=== PATIENT | male | born 2000 | race African-American/Black ===

== ENCOUNTER 2019-05-25 15:59 | Emergency (ER) | payer OTHER ==
[~2019-05-25] VITALS: Ht 170.2 cm; Wt 73.3 kg
[2019-05-25 16:00] VITALS: BP 123/70
[2019-05-25] MEDS ORDERED: PROV108A INH (16:24)
[2019-05-25] MEDS ORDERED: PRED20TA PO (16:24)
== END 2019-05-25 16:30 | disposition home or self-care (01) ==
LOC: M ED 15:59
DX: J06.9 Acute upper respiratory infection, unspecified (principal)

== ENCOUNTER 2019-11-18 07:09 | Emergency (ER) | payer OTHER ==
[~2019-11-18] VITALS: Ht 170.2 cm; Wt 77.8 kg
[~2019-11-18 07:09] MED LIST: PRED20TA PO; PROV108A INH
[2019-11-18 07:43] LABS: HEMATOCRIT 42.5 % (42.0-52.0); HEMOGLOBIN 13.8 g/dl (13.5-17.5); MEAN CORPUSCULAR HEMOGLOBIN 28.4 pg (27.0-33.0); MEAN CORPUSCULAR HGB CONC 32.5 g/dl (32.0-36.5); MEAN CORPUSCULAR VOLUME 87.4 fl (80.0-96.0); PLATELET COUNT, AUTOMATED 210 10^3/uL (150-450); RED BLOOD COUNT 4.86 10^6/uL (4.30-6.10); WHITE BLOOD COUNT 5.1 10^3/uL (4.0-10.0)
[2019-11-18 08:02] LABS: AMPHETAMINES LEVEL URINE NEGATIVE (NEGATIVE); BARBITURATES URINE NEGATIVE (NEGATIVE); BENZODIAZEPINES URINE NEGATIVE (NEGATIVE); CANNABINOIDS URINE NEGATIVE (NEGATIVE); COCAINE METABOLITE URINE NEGATIVE (NEGATIVE); METHADONE URINE NEGATIVE (NEGATIVE); OPIATES URINE NEGATIVE (NEGATIVE); PHENCYCLIDINE URINE NEGATIVE (NEGATIVE)
[2019-11-18 08:11] LABS: ACETAMINOPHEN LEVEL < 2.0 UG/ML (10.0-30.0); ALBUMIN 3.7 GM/DL (3.2-5.2); ALT/SGPT 26 U/L (12-78); BILIRUBIN,DIRECT < 0.1 MG/DL (0.0-0.2); BILIRUBIN,TOTAL 0.2 MG/DL (0.2-1.0); BLOOD UREA NITROGEN 9 MG/DL (7-18); CALCIUM LEVEL 8.9 MG/DL (8.5-10.1); CARBON DIOXIDE LEVEL 28 MEQ/L (21-32); CHLORIDE LEVEL 109 MEQ/L (98-107); CREATININE FOR GFR 1.27 MG/DL (0.70-1.30); ETHYL ALCOHOL (ETHANOL) < 0.003 % (0.000-0.010); GLUCOSE, FASTING 100 MG/DL (70-100); POTASSIUM SERUM 4.2 MEQ/L (3.5-5.1); SALICYLATE LEVEL < 1.7 MG/DL (5.0-30.0); SODIUM LEVEL 143 MEQ/L (136-145); THYROID STIMULATING HORMONE 0.431 uIU/ML (0.463-3.98); TOTAL PROTEIN 6.4 GM/DL (6.4-8.2)
--- NOTE | 2019-11-18 10:47 | ED PDOC ---
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 The patient reports that he had "attempted suicide" by falling down some stairs last evening in the [facility], however he presents with no signs or symptoms of any falls or any injuries. The patient gave multiple different accounts to different providers about his symptoms, specifically stating that he will say and do whatever "whatever it takes to be away from her". The patient specifically stated that his presentation was in order to avoid field exercises. He was unable to describe any specific symptoms and generally appeared to focus on admission only, he had reported some auditory hallucinations I want to myself, but there were highly atypical occurring of his left ear that he was not able to describe in any detail other than "voices you know" Review Of Systems Depression: Vague symptoms. Anxiety: Vague situational worries. Mili: The patient denies any episodes of euphoria/dysphoria associated with decreased need for sleep, hedonism, talkatively or impulsivity lasting longer than 5 days. Psychotic: The patient denies any experiences of auditory or visual hallucinations. They deny any episodes of paranoia or delusional thinking in the past Trauma: The patient denies any traumatic events associated with nightmares or intrusive thoughts. Borderline: Not screened due to age. Past Psychiatric History Reports that he has had a history of ADHD in the past, currently sees [facility] for therapy. Denies any overt suicide attempts, reports that he had done some gestures when he was younger. But no hospitalizations. Family Psychiatric History The patient denies/is unaware any history of mental health history including addictions and suicide. 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 He currently lives in the [facility], has been in the for 1 year. Reports no major legal issues and denies any substance use, reports some tobacco use at times but denies alcohol, cannabis or illicits. The patient is unable to describe any specific symptoms at this time. Medical History Patient has no significant past medical history. Allergies See below Mental Status Examination General: Well dressed with good hygiene Speech: Spontaneous and fluid Thought processes: Linear and logical MSK: Smooth and coordinated gait, no signs of tremors or involuntary orofacial movements Thought content: Future orientated Abstract reasoning, and computation: Intact Description of associations: Intact Description of abnormal or psychotic thoughts: Denies any suicidal or homicidal ideation. Denies any auditory or visual hallucinations. Does not appear to be responding to internal stimuli. Does not appear to be endorsing any bizarre or paranoid ideation. Judgment: Likely chronically limited Insight: Likely chronically limited Orientation: Alert and orientated 3 Cognition: Grossly normal Recent and remote memory: Intact Attention span and concentration: Intact Fund of knowledge: Adequate Mood: "okay" Affect: Euthymic with a full range Diagnoses Malingering. 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 When I come to see him he had denied any suicidal ideation or homicidal ideation. Any symptoms he described were vague and ill-defined and contradicting his euthymic and reactive affect. The patient additionally after collateral was called, it appears that he does attend behavioral health, but has had no major interactions with psychiatry that we can determine. The patient so far as to say, gave his reasons when he arrived to the triage nurse stating that he would "say whatever I have to to not have to deal with her" referring to his sergeant that he is in conflict with. I do not believe the patient meets involuntary criteria due to his lack of suicidal ideation at this time, additionally he has no confirmed attempts, his reported falling down of stairs last evening, appears highly unlikely as he has no bruises or other signs of trauma that one would anticipate falling downstairs. He additionally has made it clear his intentions behind his statements, no previous inpatient admissions and an euthymic and reactive affect in an otherwise normal mental status with perhaps some poor insight and judgment secondary to his attempts to malinger away from field exercises are the factors that come into play in my assessment. He does not meet voluntary criteria, has malingering is not expected to improve on inpatient unit or prevent any degradation, additionally it is not inappropriate diagnosis for admission to our unit both under policy and I cannot attest that the patient would have an appropriate diagnosis at this time that would be treatable on inpatient mental health unit, in a likelihood it would further devolve into him attempting to manufacture more signs that could cause damage as other providers could end up giving him treatments that may not be indicated as he attempts to avoid further fieldwork with his sergeant that he has issues with. Disposition Discharged to [facility]. Time Spent 30 minutes. Sunday SNEHAL BRENNAN DO Nov 18, 2019 10:47
[2019-11-18 13:11] VITALS: BP 126/82
== END 2019-11-18 13:16 | disposition home or self-care (01) ==
LOC: M ED 07:09
DX: F32.9 Major depressive disorder, single episode, unspecified (principal)
CPT/HCPCS: 36415; 80048; 80076; 80307; 84443; 85027; 99284; G0480